=== PATIENT | male | born 2000 | race Caucasian/White ===

== ENCOUNTER 2020-02-02 08:02 | Emergency (ER) | payer OTHER ==
[2020-02-02] MEDS ORDERED: Adacel (T-DAP) 0.5 ML SYRINGE ONE (08:14)
[2020-02-02] MEDS ORDERED: Lidocaine 1% w/Epinephrine 1:100K 20 ML VIAL ONE (08:22)
[2020-02-02] MEDS ORDERED: Bacitracin 1 PK ONE (08:40)
== END 2020-02-02 09:30 | disposition home or self-care (01) ==
LOC: ERS 08:02
DX: S51.812A Laceration without foreign body of left forearm, initial encounter (principal); W26.9XXA Contact with unspecified sharp object(s), initial encounter
CPT/HCPCS: 12001; 90471; 90715